=== PATIENT | female | born 1995 | race American Indian/Alaskan Native ===

== ENCOUNTER 2017-12-22 12:01 | Emergency (ER) | payer OTHER, MEDICAID ==
[2017-12-22 12:17] VITALS: BP 122/70
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
[2017-12-22] MEDS ORDERED: MOTRIN PO ONE (15:16)
== END 2017-12-22 17:45 | disposition home or self-care (01) ==
LOC: ED 12:01
DX: M54.2 Cervicalgia (principal); M54.5 Low back pain; V89.2XXA Person injured in unspecified motor-vehicle accident, traffic, initial encounter; Y93.89 Activity, other specified; Y92.89 Other specified places as the place of occurrence of the external cause; Y99.8 Other external cause status
CPT/HCPCS: 99282